=== PATIENT | female | born 1995 | race Two or more races ===

== ENCOUNTER 2017-07-05 17:45 | Emergency (ER) | payer MEDICAID ==
[~2017-07-05] VITALS: Ht 160 cm; Wt 54.4 kg
[~2017-07-05 17:45] MED LIST: PREN-96 PO
[2017-07-05 18:05] VITALS: BP 96/69
== END 2017-07-05 18:18 | disposition left against medical advice (07) ==
LOC: ER 17:46
DX: R11.2 Nausea with vomiting, unspecified (principal); Z53.21 Procedure and treatment not carried out due to patient leaving prior to being seen by health care provider